=== PATIENT | female | born 1990 | race Caucasian/White ===

== ENCOUNTER 2016-04-26 05:17 | Inpatient (IN) | payer OTHER ==
[2016-04-24 11:19] LABS: APPEARANCE,URINE CLOUDY; BILIRUBIN,URINE NEGATIVE (NEGATIVE); GLUCOSE, URINE NEGATIVE (NEGATIVE); KETONES,URINE NEGATIVE (NEGATIVE); LEUKOCYTE ESTERASE,URINE NEGATIVE (NEGATIVE); NITRITE,URINE NEGATIVE (NEGATIVE); PROTEIN,URINE NEGATIVE (NEGATIVE); URINE SPECIFIC GRAVITY 1.027; UROBILINOGEN,URINE NEGATIVE mg/dL (<2.0)
[2016-04-24 11:23] LABS: HEMOGLOBIN 11.2 g/dL (12.0-15.5); HGB HCT DIFFERENCE -0.4; MEAN CORPUSCULAR HEMOGLOBIN 25.6 pg (27.0-33.4); MEAN CORPUSCULAR HGB CONC 32.8 g/dL (32.0-36.0); MEAN CORPUSCULAR VOLUME 78 fl (80-97); RED BLOOD COUNT 4.36 10^6/uL (3.72-5.28); RED CELL DISTRIBUTION WIDTH 14.4 % (11.5-14.0); WHITE BLOOD COUNT 7.8 10^3/uL (4.0-10.5)
[2016-04-24 11:47] LABS: ANION GAP 13 (5-19); BLOOD UREA NITROGEN 8 mg/dL (7-20); CALCIUM 9.6 mg/dL (8.4-10.2); CARBON DIOXIDE 23 mmol/L (22-30); CHLORIDE 105 mmol/L (98-107); CREATININE RESULT 0.59 mg/dL (0.52-1.25); GLUCOSE 91 mg/dL (75-110); POTASSIUM 4.2 mmol/L (3.6-5.0); SODIUM 141.1 mmol/L (137-145)
--- NOTE | 2016-04-24 18:30 | EKG REPORT ---
SEVERITY:- NORMAL ECG - SINUS RHYTHM : Confirmed by: Sampson Dominguez MD 24-Apr-2016 18:29:31
[~2016-04-26 05:17] MED LIST: CLINDAMYCIN 600 MG/D5W RTU 600 MG/50 ML RTUPB IV PRN; GENTAMICIN SULFATE 80 MG in DEXTROSE 5%-WATER 100 ML IV PRN; LACTATED RINGERS 1000 ML IV PRN; LIDOCAINE 0.5% INJ-PF (5 MG/ML) 50 ML SDV SUBCUT PRN
[2016-04-26] MEDS ORDERED: FENTANYL CITRATE INJ/PF 250 MCG/5 ML AMPULE ONE (06:49)
[2016-04-26] MEDS ORDERED: MIDAZOLAM 2 MG/2 ML INJ ONE (06:49)
[2016-04-26] MEDS ORDERED: ACETAMINOPHEN 100 ML IV ONE (06:50)
[2016-04-26] MEDS ORDERED: PROPOFOL INJ 200 MG/20 ML VIAL IV ONE (06:50)
[2016-04-26] MEDS ORDERED: EPHEDRINE SULFATE INJ 50 MG/1 ML AMPULE ONE (06:50)
[2016-04-26] MEDS ORDERED: DEXMEDETOMIDINE INJ 80 MCG/20 ML VIAL IV ONE (06:50)
[2016-04-26] MEDS ORDERED: FENTANYL CITRATE INJ/PF 100 MCG/2 ML AMPUL IV PRN ×3 (07:47)
[2016-04-26] MEDS ORDERED: DIPHENHYDRAMINE HCL 50 MG/ML VIAL IV PRN (07:47)
[2016-04-26] MEDS ORDERED: OXYCODONE-ACETAMINOPHEN 5-325 MG TABLET PO PRN ×3 (07:47→09:15)
[2016-04-26] MEDS ORDERED: ONDANSETRON HCL INJ/PF 4 MG/2 ML SDV IV PRN (07:47)
[2016-04-26] MEDS ORDERED: PROMETHAZINE HCL INJ 25 MG/1 ML VIAL IV PRN ×2 (07:47)
[2016-04-26] MEDS ORDERED: MORPHINE SULFATE 10 MG/ML INJ IV PRN (07:47)
[2016-04-26] MEDS ORDERED: MEPERIDINE HCL/PF INJ 25 MG/1 ML DISP.SYRIN IV PRN (07:47)
[2016-04-26] MEDS ORDERED: MORPHINE SULFATE 10 MG/ML INJ IM PRN (09:15)
[2016-04-26] MEDS ORDERED: MORPHINE SULFATE 10 MG/ML INJ INJ PRN ×2 (09:15)
--- NOTE | 2016-04-26 09:30 | OPERATIVE REPORT E ---
Operative Report NAME: EFRAIN SOLANO : 1990 AGE: 25Y DATE OF SURGERY: 04/26/2016 ROOM: OR PREOPERATIVE DIAGNOSIS: GORDY-3 of the cervix as well as a placental nodule. PROCEDURE: Total abdominal hysterectomy with Pineda culdoplasty. SURGEON: COMPA MATHIS M.D. COMPLICATIONS: None. ANESTHESIA: General endotracheal. ESTIMATED BLOOD LOSS: 100 mL. FINDINGS: Normal appearing uterus, cervix, tubes, and ovaries. No enterocele formation appreciation. INDICATION OF PROCEDURE: Patient had GORDY lesions of the cervix and had cone approximately 2 months ago and the placental nodules diagnosed, presumably causing the concern regarding the cervix. The usual risk of bleeding, infection, anesthesia, damage to other organ and tissue was discussed with the patient who understood. PROCEDURE: The patient was taken to the operating room and placed in a modified lithotomy position after adequate anesthesia ascertained. After surgical time out performed, IV antibiotics had been given, EUA performed, a posterior culdotomy incision was made. Uterosacral ligaments were crossclamped, cut, suture ligated, and held. Using a LigaSure advanced device at this point up to the level of the upper pedicles, the lower broad ligament, *------* ligament, uterine vessels, and upper uterine ovarian ligament were crossclamped and cauterized. Upper pedicles were sutures ligated, free tied, and held. The uterus and cervix handed off the operative field. Bowel and bladder were reflected out of the field sequentially during the case and ultimately the anterior cul-de-sac entered without difficulty. These were retracted and replaced reflecting the ureters thusly. Good hemostasis was assured at this point in the case. The vagina was then closed in an anteroposterior fashion. No enterocele formation was appreciated at this point. Pineda culdoplasty stitch placed prior to this aspect of the procedure and tied at the end of the case. At the completion of the procedure, all sponge and needle counts were correct. Patient was awakened and taken to recovery room in stable condition. DICTATING PHYSICIAN: COMPA MATHIS M.D. [id number] PHY#: [id number] ID: [id number] JOB#: [id number] ACCT: [id number] cc:COMPA MATHIS M.D. >
[2016-04-26] MEDS ORDERED: IBUPROFEN 800 MG TABLET PO SCH ×2 (10:00→22:00)
[2016-04-26] MEDS ORDERED: PROMETHAZINE HCL INJ 50 MG/1 ML VIAL IM PRN (10:00)
[2016-04-26] MEDS ORDERED: VECURONIUM BROMIDE INJ 10 MG VIAL IV ONE (14:21)
[2016-04-26] MEDS ORDERED: METOCLOPRAMIDE HCL INJ/PF 10 MG/2 ML SDV ONE (14:21)
[2016-04-26] MEDS ORDERED: ONDANSETRON HCL INJ/PF 4 MG/2 ML SDV ONE (14:21)
[2016-04-26] MEDS ORDERED: LIDOCAINE 2% INJ-PF (20 MG/ML) 10 ML AMPUL ONE (14:21)
[2016-04-26] MEDS ORDERED: GLYCOPYRROLATE INJ 0.4 MG/2 ML VIAL ONE (14:21)
[2016-04-26] MEDS ORDERED: DEXAMETHASONE SOD PHOSPHATE INJ 4 MG/1 ML VIAL ONE (14:21)
[2016-04-26] MEDS ORDERED: SUCCINYLCHOLINE CHLORIDE INJ 200 MG/10 ML VIAL ONE (14:21)
[2016-04-26] MEDS ORDERED: NEOSTIGMINE METHYLSULFATE 10 MG/10 ML VIAL ONE (14:21)
[2016-04-26 17:03] VITALS: BP 118/71
--- NOTE | 2016-05-24 09:33 | DISCHARGE SUMMARY E ---
Discharge Summary NAME: EFRAIN SOLANO : 1990 AGE: 25Y ADMITTED: 04/26/2016 DISCHARGED: 04/26/2016 HOSPITAL COURSE: This is a 25-year-old female admitted for definitive treatment for a GORDY lesion of the cervix and presumed placenta nodule noted on preoperative pathology. The patient underwent same-day admission, underwent a total vaginal hysterectomy and Pineda culdoplasty with estimated blood loss of 100 mL. Postop the patient did well, ambulatory, regular diet, no evidence of DVT, discharged on hospital day #1 doing well. FINAL DIAGNOSIS: Pathology showed dysplasia of the cervix, surgical margins negative for dysplasia, previous placental nodule site was noted proliferative endometrium. DISPOSITION: Return to the office in 1 week. DICTATING PHYSICIAN: COMPA MATHIS M.D. [id number] PHY#: [id number] ID: [id number] JOB#: [id number] ACCT: [id number] cc:COMPA MATHIS M.D. >
--- NOTE | 2016-05-24 09:37 | OPERATIVE REPORT E ---
Operative Report NAME: EFRAIN SOLANO : 1990 AGE: 25Y DATE OF SURGERY: 04/26/2016 ROOM: 207 ADDENDUM/CORRECTION: The op note shows procedure done as abdominal hysterectomy. This was a vaginal hysterectomy. DICTATING PHYSICIAN: COMPA MATHIS M.D. [id number] PHY#: [id number] ID: [id number] JOB#: [id number] ACCT: [id number] cc:COMPA MATHIS M.D. >
== END 2016-04-26 17:59 | disposition home or self-care (01) | DRG 743 ==
LOC: UNDOADMIN 05:17 → INOR 05:17 → UNDOADMIN 05:30 → INOR 05:30 → 2N 09:35
PROVIDERS: ADMIT Specialist; ATTEND Specialist
PROC: 0UTC7ZZ Resection of Cervix, Via Natural or Artificial Opening (ICD-10-PCS; 2016-04-26)
PROC: 0UQF7ZZ Repair Cul-de-sac, Via Natural or Artificial Opening (ICD-10-PCS; 2016-04-26)
PROC: 0UT97ZZ Resection of Uterus, Via Natural or Artificial Opening (ICD-10-PCS; principal; 2016-04-26 07:15)
DX: N87.0 Mild cervical dysplasia (principal); F32.9 Major depressive disorder, single episode, unspecified
CPT/HCPCS: 36415; 71020; 80048; 81001; 81025; 85027; 86850; 86900; 86901; 88307; 93005; 93010; 944; 94799; J0131; J0330; J1100; J1580; J2250; J2270; J2405; J2550; J2704; J2765; J3010; J3490